=== PATIENT | female | born 1960 | race Caucasian/White ===

== ENCOUNTER → 2017-12-02 | Day surgery (SDC) | payer MEDICARE, OTHER ==
[2017-11-25 13:29] VITALS: BMI 38.2
[~2017-12-02] MED LIST: ACETAMINOPHEN TAB 325 MG TAB ONE; ALPRAZolam 0.25 MG TAB PO PRN; ALPRAZolam 0.5 MG TAB PO PRN; ASPIRIN 325 MG TAB PO STA; ATORVASTATIN 80 MG TAB PO STA; HEPARIN SODIUM 1,000 UN/ML (10ML VL) ONE; IOPAMIDOL-370 100ML BTL INJ ONE; ISOSORBIDE MONONITRATE ER 30 MG TAB.ER.24H PO SCH; LIDOCAINE 2% INJ 20 MG/ML (20 ML MDV) ONE; LIDOCAINE 2% INJ 20 MG/ML SQ ONE; MIDAZOLAM 2 MG/2 ML VIAL IVP ONE; MIDAZOLAM 2 MG/2 ML VIAL ONE; NITROGLYCERIN SL TABS 0.4 MG TAB SUBLINGUAL PRN; ONDANSETRON 4 MG/2 ML VIAL ONE; RX INFO: IV CONTRAST WAS GIVEN 1 EACH MISC MISCELLANE PRN; SODIUM CHLORIDE 0.9% 1,000 ML IV SCH; SODIUM CHLORIDE 0.9% 1,000 ML in EMPTY BAG 1 BAG IV ONE; VERAPAMIL 2.5 MG/ML 2 ML AMP ONE; diphenhydrAMINE 50 MG/ML 1 ML VIAL IVP ONE; diphenhydrAMINE 50 MG/ML 1 ML VIAL ONE; fentaNYL (PF) 50 MCG/ML 2 ML AMP IVP ONE; fentaNYL (PF) 50 MCG/ML 2 ML AMP ONE
[2017-12-02 09:40] VITALS: TEMP 97.6
[2017-12-02 10:30] LABS: Basophils # (A) 0.1 k/uL (0-0.2); Basophils % (A) 1 %; Eosinophils # (A) 0.2 k/uL (0-0.7); Eosinophils % (A) 3 %; HCT 42.5 % (34.0-46.0); HGB 14.3 gm/dL (11.4-16.0); Lymphocytes # (A) 1.7 k/uL (1.0-4.8); Lymphocytes % (A) 22 %; MCH 28.2 pg (25.0-35.0); MCHC 33.5 g/dL (31.0-37.0); MCV 83.9 fL (80.0-100.0); Mean Platelet Volume 7.3; Monocytes # (A) 0.5 k/uL (0-1.0); Monocytes % (A) 7 %; Neutrophils # (A) 5.1 k/uL (1.3-7.7); Neutrophils % (A) 67 %; Platelet Count 299 k/uL (150-450); RBC 5.07 m/uL (3.80-5.40); RDW 12.3 % (11.5-15.5); WBC 7.6 k/uL (3.8-10.6)
[2017-12-02 11:23] LABS: Anion Gap 14 mmol/L; Blood Urea Nitrogen 28 mg/dL (7-17); Calcium 9.8 mg/dL (8.4-10.2); Carbon Dioxide 28 mmol/L (22-30); Chloride 101 mmol/L (98-107); Glucose 105 mg/dL (74-99); Potassium 4.6 mmol/L (3.5-5.1); Sodium 143 mmol/L (137-145)
[2017-12-02] MEDS: NITROGLYCERIN 1000MCG/10ML SYRINGE INTRACORON ONE ×2 (11:31→11:44)
--- NOTE | 2017-12-02 12:46 | CC ---
CARDIAC CATHETERIZATION REPORT DATE OF SERVICE: 12/02/2017. PROCEDURE: Left heart catheterization, coronary angiography. PERFORMED BY: Dr. Yola Capellan Moderate conscious sedation time was 42 minutes with a combination of Versed, Benadryl and fentanyl. CLINICAL INFORMATION: Mrs. Nica Dale is a 57-year-old lady with a strong family history of premature CAD, hypertension, and hyperlipidemia who recently had a positive stress test with 4- 1/2 minutes of exercise, heart rate of more than 90% of predicted maximal with evidence of some reversibility in the anteroapical wall on the nuclear scan with 1.[address]- segment depression. She was advised coronary angiography. Risks, benefits, options and rationale were explained. PROCEDURE NOTE: Under strict aseptic precautions and local anesthesia, I attempted access from the right radial. I was able to get the access but could not thread the wire. I tried again with micropuncture, but there was some spasm. I therefore abandoned the right radial site and went ahead with the right femoral approach. I placed a 6-Liber[place] introducer in the right femoral artery under strict aseptic precautions and local anesthesia. Using standard Michael catheters, I performed coronary angiography and the right coronary catheter was used to check LV pressures. LV gram was not performed. The sheath was taken out and manual compression used to secure hemostasis. The pulse in the right radial artery was good with a saturation in the fingers of 94%. She had a pressure bandage in the right radial site. Manual compression was used for right femoral site and FemoStop would be applied for a total of 4-1/2 hours. CARDIAC CATHETERIZATION FINDINGS: The left ventricular end-diastolic pressure was 12 to 13 mmHg without any gradient across the aortic valve. CORONARY ANGIOGRAPHY FINDINGS: RIGHT CORONARY ARTERY: Technically this is a dominant vessel, has no significant disease in the proximal or mid portion. It gives off an acute marginal branch and distally bifurcates into PDA and PLV, both of which have minor irregularities but no significant disease. LEFT MAIN CORONARY ARTERY: There appears to be in cranial projections some ostial left main disease of no more than 15%. However, in a more coaxial caudal projection, the left main appears to be completely free of significant disease without any damping. Left main is long, has no significant disease other than a question of 15% ostial disease and distally bifurcates into LAD and circumflex. LEFT ANTERIOR DESCENDING CORONARY ARTERY: Good caliber vessel extends along the anterior wall. Multiple angiograms were obtained in various projections. It gives off a first diagonal branch very proximally. This diagonal branch has a 90% stenosis and supplies a limited amount of myocardium. After the diagonal branch, there are some septal branches that are also free of significant disease. In the mid portion, the LAD gives off a large diagonal branch which is of good caliber and distribution. The LAD continues all the way to the apex giving off septal branches. There are minor irregularities in the LAD and the distal one-fourth seems to be smaller in caliber and has mild diffuse disease but no focal stenosis. LEFT POSTERIOR CIRCUMFLEX CORONARY ARTERY: Technically a nondominant vessel, gives off a very high first obtuse marginal which is small in caliber and distribution, then continues distally as a posterolateral branch. There is a small AV groove branch as well. There is a left atrial circumflex branch that comes off from the circumflex vessel. No significant disease is noted in the nondominant circumflex. When I initially injected the left system, there was significant amount of spasm and once I gave intracoronary nitroglycerin the spasm disappeared and the caliber of the vessels improved remarkably. There is probably an element of vasospastic coronary disease in this patient. LEFT VENTRICULOGRAM: This was not performed. LV filling pressures are normal and there was no gradient across aortic valve. FINAL IMPRESSION: This patient has a right dominant system. There is a 15% stenosis involving the ostium of the left main. In caudal projections, I do not see any stenosis. There appears to be an element of vasospasm with improvement in the coronary size and flow with nitroglycerin injection in the left system. The filling pressures are normal. There is no significant disease in the left anterior descending artery other than a small first diagonal branch with 80% stenosis. The circumflex, which is nondominant, is free of significant disease and dominant right coronary artery is free of significant disease. Distal left anterior descending artery has some minor irregularities. RECOMMENDATION: I am recommending that we will pursue medical therapy. Add Imdur in view of vasospasms 30 mg daily. Continue all the other medications. Keep her LDL cholesterol under 70 and we will gradually get her into a walking program and see how she does. I discussed my thoughts in detail with the patient and family and I expect she will be discharged later on today if she remains stable. Moderate conscious sedation time was 42 minutes. MMODL / IJN: [id number] /
[2017-12-02 18:04] VITALS: BP 129/67; PULSE 64; RESP 18
== END ==
LOC: CATHCVL 09:22
PROVIDERS: ATTEND Internal Medicine Interventional Cardiology
DX: I25.110 Atherosclerotic heart disease of native coronary artery with unstable angina pectoris (principal); R94.39 Abnormal result of other cardiovascular function study; E78.00 Pure hypercholesterolemia, unspecified; I10 Essential (primary) hypertension; H54.8 Legal blindness, as defined in USA; H35.30 Unspecified macular degeneration; Z82.49 Family history of ischemic heart disease and other diseases of the circulatory system; Z79.82 Long term (current) use of aspirin; Z79.899 Other long term (current) drug therapy
CPT/HCPCS: 93458; 80048; 85025; C1894 ×2; C1769 ×2; J2001; J2250; J1200; J2405; J3010; Q9967